=== PATIENT | male | born 1990 | race Caucasian/White ===

== ENCOUNTER 2017-07-15 15:21 | Observation (INO) | payer OTHER ==
--- NOTE | 2017-07-15 15:23 | EDPHY ---
H & P Time Seen by Provider: 07/15/17 15:23 HPI/ROS: CHIEF COMPLAINT: Abdominal pain HISTORY OF PRESENT ILLNESS: The patient presents to the ED for evaluation of a 1 day history of generalized abdominal pain. The patient reports several episodes of loose stool earlier today. He then developed subjective constipation. The patient reports that his symptoms have not improved. He last ate at noon today. He is not had a fever. The patient denies prior history of abdominal surgery. The patient did have an upper respiratory infection 1 week ago. He has been taking some herbal supplements for this condition prescribed by an waterproofing mixer. The patient denies excessive NSAID usage. He denies any complaints of melena or hematochezia. He currently rates his pain as a 5/10. REVIEW OF SYSTEMS: A comprehensive 10 point review of systems is otherwise negative aside from elements mentioned in the history of present illness. Source: Patient Exam Limitations: No limitations - Medical/Surgical History PMH: Past medical history: Noncontributory - Family History Significant Family History: No pertinent family hx - Social History Smoking Status: Never smoked - Physical Exam Exam: General Appearance: Alert, no distress Eyes: Pupils equal and round no pallor or injection ENT, Mouth: Mucous membranes moist Respiratory: There are no retractions, lungs are clear to auscultation Cardiovascular: Regular rate and rhythm Gastrointestinal: Tenderness to palpation in the right lower quadrant with mild rebound and guarding Neurological: A&O, normal motor function, normal sensory exam, normal cranial nerves Skin: Warm and dry, no rashes Musculoskeletal: Neck is supple nontender Extremities: symmetrical, full range of motion Constitutional: Initial Vital Signs Temperature (C) 37.2 C 07/15/17 15:24 Heart Rate 70 07/15/17 15:24 Respiratory Rate 16 07/15/17 15:24 Blood Pressure 130/86 H 07/15/17 15:24 O2 Sat (%) 96 07/15/17 15:24 O2 Delivery Mode Room Air,Bag Valve Mask Allergies/Adverse Reactions: No Known Allergies Allergy (Unverified 07/15/17 15:24) Home Medications: Medication Instructions Recorded NK [No Known Home Meds] 07/15/17 Medical Decision Making - Diagnostics Imaging Results: Imaging Impressions Abdomen Ultrasound 07/15/17 15:37 Impression: 1. Mildly dilated and thickened appendix in the right lower quadrant with possible appendicolith suspicious for appendicitis. The patient was moderately tender over this as well. Findings discussed with [place] M.D. at 16:12 hour, 07/15/2017. ED Course/Re-evaluation: The patient presents to the ED for evaluation of acute abdominal pain. The patient had an IV established. He received a L of normal saline. Given his right lower quadrant tenderness and guarding a ultrasound the abdomen was ordered to evaluate for appendicitis. The patient was offered IV narcotic medications after my initial evaluation and declined. The patient underwent an abdominal ultrasound which does demonstrate evidence of acute appendicitis. I re-evaluated the patient at 4:20 p.m.. He is now requesting IV pain medications. He received 4 mg of IV morphine. The patient is given a g of Invanz. Consultation was made with Dr. Lawson from General surgery. The patient will be admitted for appendectomy. The patient is taken to the operating room at 4:40 p.m.. He was evaluated by Dr. Lwason prior to his transfer to the operating room. Differential Diagnosis: Differential diagnosis considered includes appendicitis, gastroenteritis, hernia , mesenteric adenitis - Data Points Laboratory Results: Laboratory Results 07/15/17 15:44 07/15/17 15:44 07/15/17 07/15/17 15:44 15:44 WBC 11.38 10^3/uL H 10^3/uL (3.80-9.50) RBC 5.05 10^6/uL 10^6/uL (4.40-6.38) Hgb 16.3 g/dL g/dL (13.7-17.5) Hct 44.1 % % (40.0-51.0) MCV 87.3 fL fL (81.5-99.8) MCH 32.3 pg pg (27.9-34.1) MCHC 37.0 g/dL H g/dL (32.4-36.7) RDW 12.0 % % (11.5-15.2) Plt Count 206 10^3/uL 10^3/uL (150-400) MPV 9.1 fL fL (8.7-11.7) Neut % (Auto) 74.9 % H % (39.3-74.2) Lymph % (Auto) 14.8 % L % (15.0-45.0) [place] % (Auto) 6.3 % % (4.5-13.0) Eos % (Auto) 3.3 % % (0.6-7.6) Baso % (Auto) 0.4 % % (0.3-1.7) Nucleat RBC Rel Count 0.0 % % (0.0-0.2) Absolute Neuts (auto) 8.53 10^3/uL H 10^3/uL (1.70-6.50) Absolute Lymphs (auto) 1.68 10^3/uL 10^3/uL (1.00-3.00) Absolute Monos (auto) 0.72 10^3/uL 10^3/uL (0.30-0.80) Absolute Eos (auto) 0.38 10^3/uL 10^3/uL (0.03-0.40) Absolute Basos (auto) 0.04 10^3/uL 10^3/uL (0.02-0.10) Absolute Nucleated RBC 0.00 10^3/uL 10^3/uL (0-0.01) Immature Gran % 0.3 % % (0.0-1.1) Immature Gran # 0.03 10^3/uL 10^3/uL (0.00-0.10) Sodium 142 mEq/L mEq/L (134-144) Potassium 4.1 mEq/L mEq/L (3.5-5.2) Chloride 104 mEq/L mEq/L (97-110) Carbon Dioxide 25 mEq/l mEq/l (22-31) Anion Gap 13 mEq/L mEq/L (8-16) BUN 17 mg/dL mg/dL (7-23) Creatinine 0.9 mg/dL mg/dL (0.7-1.3) Estimated GFR > 60 Glucose 92 mg/dL mg/dL (70-100) Calcium 9.6 mg/dL mg/dL (8.5-10.4) Medications Given: Discontinued Medications Sodium Chloride (Ns) 1,000 mls @ 0 mls/hr IV EDNOW ONE; Wide Open PRN Reason: Protocol Stop: 07/15/17 15:37 Last Admin: 07/15/17 15:49 Dose: 1,000 mls Ertapenem 1 gm/ Sodium (Chloride) 100 mls @ 200 mls/hr IV EDNOW ONE PRN Reason: Protocol Stop: 07/15/17 16:43 Last Admin: 07/15/17 17:21 Dose: 100 mls Morphine Sulfate (Morphine) 4 mg IVP EDNOW ONE Stop: 07/15/17 16:22 Last Admin: 07/15/17 16:35 Dose: 4 mg Departure - Departure Disposition: [facility] Inpatient Acute Clinical Impression: Acute appendicitis Condition: Good
[2017-07-15] MEDS ORDERED: NS 1,000 ML IV ONE (15:36)
[2017-07-15 15:55] LABS: PLATELET COUNT 206 10^3/uL (150-400)
[2017-07-15] MEDS ORDERED: ERTAPENEM 1 GM in NS 100 ML IV ONE (16:14)
[2017-07-15] MEDS ORDERED: LR 1,000 ML IV ONE (16:51)
[2017-07-15] MEDS ORDERED: BUPIVACAINE 0.5% 30 ML SDV ONE (17:06)
[2017-07-15] MEDS ORDERED: HEPARIN 1000 UNIT/1 ML MDV ONE (17:07)
[2017-07-15] MEDS ORDERED: MIDAZOLAM 2 MG/2 ML VIAL IVP ONE (17:07)
[2017-07-15] MEDS ORDERED: ceFAZolin 1 GM/5 ML SYR ONE (17:07)
--- NOTE | 2017-07-15 17:07 | PDANEPAE ---
ANE History of Present Illness 27 yo M w acute appendicitis, here for lap elias KAITY Past Medical History - Cardiovascular History Hx Hypertension: No Hx Arrhythmias: No Hx Chest Pain: No Hx Coronary Artery / Peripheral Vascular Disease: No Hx CHF / Valvular Disease: No Hx Palpitations: No - Pulmonary History Hx COPD: No Hx Asthma/Reactive Airway Disease: No Hx Recent Upper Respiratory Infection: No Hx Oxygen in Use at Home: No Hx Sleep Apnea: No - Neurologic History Hx Cerebrovascular Accident: No Hx Seizures: No Hx Dementia: No - Endocrine History Hx Diabetes: No - Surgical History Prior Surgeries: repaired ankle fracture ANE Review of Systems Review of Systems: - Exercise capacity METS (RN): 6 METS ANE Patient History - Allergies Allergies/Adverse Reactions: No Known Allergies Allergy (Unverified 07/15/17 15:24) - Home Medications Home medications: none Home Medications: NK [No Known Home Meds] 07/15/17 [Last Taken Unknown] - NPO status NPO Since - Liquids (Date): 07/15/17 NPO Since - Liquids (Time): 13:30 NPO Since - Solids (Date): 07/15/17 NPO Since - Solids (Time): 12:00 - Anes Hx Anes Hx: no prior problems - Smoking Hx Smoking Status: Never smoked - Alcohol Use Alcohol Use: Occasionally - Family Anes Hx Family Anes Hx: none Family Hx Anesthesia Complications: none ANE Labs/Vital Signs - Labs Result Diagrams: 07/15/17 15:44 07/15/17 15:44 - Vital Signs Blood Pressure: 138/78 Heart Rate: 80 Respiratory Rate: 14 O2 Sat (%): 98 Height: 190.5 cm Weight: 86.183 kg ANE Physical Exam - Airway Neck exam: FROM Mallampati Score: Class 1 Mouth exam: normal dental/mouth exam - Pulmonary Pulmonary: no respiratory distress, clear to auscultation - Cardiovascular Cardiovascular: regular rate and rhythym, no murmur, rub, or gallop - ASA Status ASA Status: I ANE Anesthesia Plan Anesthesia Plan: general endotracheal anesthesia
[2017-07-15] MEDS ORDERED: PROPOFOL 200 MG/20 ML VIAL ONE ×2 (17:25)
[2017-07-15] MEDS ORDERED: fentaNYL 100 MCG/2 ML INJ ONE (17:25)
[2017-07-15] MEDS ORDERED: SUCCINYLCHOLINE CHLORIDE*ANESTHESIA ONLY*200 MG/10 ML SYR IVP ONE (17:27)
[2017-07-15] MEDS ORDERED: ROCURONIUM 50 MG/5 ML VIAL ONE (17:28)
[2017-07-15] MEDS ORDERED: LIDOCAINE 2% 100 MG/5 ML SYR ONE (17:28)
--- NOTE | 2017-07-15 17:29 | PDGENHP ---
History & Physical Chief Complaint: ABDOMINAL PAIN History of Present Illness: 27-YEAR-OLD MALE WITH GREATER THAN 12 HOURS OF ABDOMINAL PAIN WITH SOME ASSOCIATED EMESIS. PAIN IS LOCALIZED TO THE RIGHT LOWER QUADRANT MUCH WORSE WITH MOVING AROUND. NO REAL FEVER. NO TRAUMA TO THE ABDOMEN AND NO PRIOR ABDOMINAL SURGERIES. WBC IS 11.5K WITH A LEFT SHIFT. ULTRASOUND REVEALS A THICKENED 9 MM APPENDIX WHICH IS TENDER TO EXTERNAL COMPRESSION. ADMITTED AT THIS TIME FOR EMERGENT APPENDECTOMY. RISKS AND OPTIONS FULLY DISCUSSED AND HE WISHES TO PROCEED. WE HAVE DISCUSSED ALTERNATIVE TREATMENTS SUCH ANTIBIOTICS ONLY AND HE WISHED TO PROCEED WITH SURGERY Pertinent Past, Social, Family History: PMH: ANKLE ORIF, NO OTHER MAJOR HOSPITALIZATIONS OR SERIOUS ILLNESSES. FAMILY HISTORY NONCONTRIBUTORY. REVIEW OF SYSTEMS: NEGATIVE ON A FULL 10 POINT REVIEW OF SYSTEMS/SPECIFICALLY HE DOES NOT SMOKE AND HAS NO CARDIOPULMONARY SYMPTOMS. MEDICATIONS NONE. NO KNOWN ALLERGIES Relevant Physical Exam: GENERAL: HEALTHY 27-YEAR-OLD MALE IN NO ACUTE DISTRESS , AFEBRILE PRESENTLY. HEENT: NECK IS SUPPLE, NONICTERIC, NO ADENOPATHY, NO ORAL LESIONS ALTHOUGH MUCOUS MEMBRANES ARE DRY. CHEST CLEAR. COR REGULAR RHYTHM. ABDOMEN SOFT BUT VERY TENDER IN RIGHT LOWER QUADRANT WITH SOME REBOUND/ NO HERNIAS. GENITALIA NORMAL. EXTREMITIES NORMAL. NEURO EXAM IS PHYSIOLOGIC. SKIN INTACT Cardiorespiratory Assessment: IMPRESSION: ACUTE APPENDICITIS. PLAN: EMERGENCY APPENDECTOMY, LAPAROSCOPIC/RISKS AND OPTIONS FULLY DISCUSSED AND HE WISHES TO PROCEED
--- NOTE | 2017-07-15 18:28 | POSTOPPROG ---
Post Op Note Date of Operation: 07/15/17 Surgeon: Yusuf Lawson Anesthesiologist: EDITH Anesthesia: GET(General Endotracheal) Pre-op Diagnosis: ACUTE APPENDICITIS Post-op Diagnosis: SAME Indication: PAIN Procedure: LAPAROSCOPIC APPENDECTOMY Findings: ACUTE SUPPURATIVE NON PERFORATED APPENDICITIS Inf/Abcess present in the surg proc area at time of surgery?: Yes Depth: Organ Space EBL: Minimal Complications: NONE Specimen(s): APPENDIX
[2017-07-15] MEDS ORDERED: ONDANSETRON 4 MG/2 ML VIAL IVP PRN ×2 (18:30→18:33)
[2017-07-15] MEDS ORDERED: HYDROmorphONE/DILAUDID 1 MG/ML INJ IVP PRN ×2 (18:30→18:33)
[2017-07-15] MEDS ORDERED: OXYCODONE/APAP 5/325 TAB PO PRN ×2 (18:30→18:33)
[2017-07-15] MEDS ORDERED: D5W 1/2 NS W/ 20 KCl/L 1,000 ML IV SCH (18:30)
[2017-07-15] MEDS ORDERED: ACETAMINOPHEN 500 MG TAB PO PRN (18:33)
[2017-07-15] MEDS ORDERED: NALOXONE HCL 0.4 MG/ML INJ IVP PRN (18:33)
[2017-07-15] MEDS ORDERED: fentaNYL 100 MCG/2 ML INJ IVP PRN (18:33)
--- NOTE | 2017-07-15 18:34 | POSTANESTH ---
Post Anesthetic Evaluation Cardiovascular Status: Normal, Stable, Similar to Pre-Op Cond Respiratory Status: Normal, Stable, Similar to Pre-op Cond. Level of Consciousness/Mental Status: Can Participate in Eval, Alert and Oriented Pain Control: Adequate, Prn Tx Ordered Nausea/Vomiting Control: Adequate, Prn Tx Ordered Complications Possibly Related to Anesthesia: None Noted
[2017-07-15] MEDS: KETOROLAC 15 MG/1 ML SDV IVP SCH (23:52)
[2017-07-16] MEDS: KETOROLAC 15 MG/1 ML SDV IVP SCH (05:42)
[2017-07-16 07:33] VITALS: BP 104/63; PULSE 69; RESP 16; TEMP 98.1; O2SAT 96
[2017-07-16] MEDS ORDERED: FLU VACC QS 2017-18 (3YR+)/PF 0.5 ML SYR (FLUARIX QUAD) IM ONE (08:41)
[2017-07-16] MEDS ORDERED: ERTAPENEM 1 GM in NS 100 ML IV SCH (09:00)
--- NOTE | 2017-07-16 09:49 | SOAPPROG ---
SOAP Progress Note Assessment/Plan: Assessment/Plan: 27 Y M s/p lap appy. POD#1. Doing well. D/c to home. Seen c Dr. Lawson. Pain controlled. No N/V. Ambulating well. alert, nad no wob abd soft, inc cdi 07/16/17 09:48 Objective: Vital Signs Temp Pulse Resp BP Pulse Ox 36.7 C 69 16 104/63 96 07/16/17 07:32 07/16/17 07:32 07/16/17 07:32 07/16/17 07:32 07/16/17 07:32 07/15/17 07/16/17 07/17/17 05:59 05:59 05:59 Intake Total 3000 Balance 3000 ICD10 Worksheet Patient Problems: Problems Problem Status Onset Acute appendicitis Acute
--- NOTE | 2017-07-16 16:06 | ASDISCHSUM ---
Discharge Information Plan Status:Home with No Needs Medically Cleared to Leave:07/15/2017 Discharge Date:07/16/2017 10:31 AM CM D/C Disposition: ADT D/C Disposition:Home, Routine, Self-Care Projected Discharge Date:07/16/2017 12:00 AM Transportation at D/C: Discharge Delay Reason: Follow-Up Date:07/16/2017 12:00 AM Discharge Slot: Final Diagnosis: Placement Information Patient Contact Information Contact Name:CARLOS MANUEL Relationship:Other Address: Work Phone: City: [facility] Phone: State/[place] Code: Email: Financial Information Financial Class:HMO and PPO Plans Primary Plan Desc:[facility] Primary Plan Number:[id number] Secondary Plan Desc: Secondary Plan Number: Assessment Information Intervention Information
--- NOTE | 2017-07-16 16:06 | ASDISCHSUM ---
Discharge Information Plan Status:Home with No Needs Medically Cleared to Leave:07/15/2017 Discharge Date:07/16/2017 10:31 AM CM D/C Disposition: ADT D/C Disposition:Home, Routine, Self-Care Projected Discharge Date:07/16/2017 12:00 AM Transportation at D/C: Discharge Delay Reason: Follow-Up Date:07/16/2017 12:00 AM Discharge Slot: Final Diagnosis: Placement Information Patient Contact Information Contact Name:CARLOS MANUEL Relationship:Other Address: Work Phone: City: [facility] Phone: State/[place] Code: Email: Financial Information Financial Class:HMO and PPO Plans Primary Plan Desc:[facility] Primary Plan Number:[id number] Secondary Plan Desc: Secondary Plan Number: Assessment Information Intervention Information
--- NOTE | 2017-07-16 16:06 | ASDISCHSUM ---
Discharge Information Plan Status:Home with No Needs Medically Cleared to Leave:07/15/2017 Discharge Date:07/16/2017 10:31 AM CM D/C Disposition: ADT D/C Disposition:Home, Routine, Self-Care Projected Discharge Date:07/16/2017 12:00 AM Transportation at D/C: Discharge Delay Reason: Follow-Up Date:07/16/2017 12:00 AM Discharge Slot: Final Diagnosis: Placement Information Patient Contact Information Contact Name:CARLOS MANUEL Relationship:Other Address: Work Phone: City: [facility] Phone: State/[place] Code: Email: Financial Information Financial Class:HMO and PPO Plans Primary Plan Desc:[facility] Primary Plan Number:[id number] Secondary Plan Desc: Secondary Plan Number: Assessment Information Intervention Information
== END 2017-07-16 10:31 | disposition home or self-care (01) ==
LOC: F3E 19:32
PROVIDERS: ADMIT Surgery; ATTEND Surgery
PROC: 0DTJ4ZZ Resection of Appendix, Percutaneous Endoscopic Approach (ICD-10-PCS; principal; 2017-07-15 17:00)
DX: K35.80 Unspecified acute appendicitis (principal); Z23 Encounter for immunization
CPT/HCPCS: 44970; 76705; 90471; 96361; 96374; 96375; 96376; 99285; G0378; G0008; J0330; J1335; J1885; J2001; J2250; J2704; J3010